=== PATIENT | male | born 1960 | race American Indian/Alaskan Native ===

== ENCOUNTER 2017-11-09 07:17 | Day surgery (SDC) | payer MEDICARE ==
[2017-11-09] MEDS ORDERED: NACL 0.9% 1000 ML 1,000 ML ONE ×2 (07:47→08:13)
[2017-11-09] MEDS ORDERED: WATER FOR IRRIG STERILE IR ONE (08:37)
[2017-11-09] MEDS ORDERED: WATER FOR IRRIG STERILE ONE (08:38)
--- NOTE | 2017-11-09 08:46 | Anesthesia Day of Surgery ---
Anesthesia Day of Surgery - Day of Surgery Patient Examined: Yes Patient H&P Reviewed: Yes Patient is NPO: Yes
--- NOTE | 2017-11-09 08:46 | Anesthesia Consultation ---
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
[2017-11-09] MEDS ORDERED: DIPRIVAN 10 MG/ML IV ONE ×2 (08:55→08:56)
[2017-11-09] MEDS ORDERED: NACL 0.9% 1000 ML 1,000 ML IV SCH (09:00)
--- NOTE | 2017-11-09 09:14 | Short Stay Summary ---
Short Stay Documentation Date of service: 11/09/17 Narrative H&P: 57 year old presents for colonoscopy for his initial colon screening examination. - History Principal diagnosis: average risk colon screening H&P: obtained from office Past Medical History: diabetes, hypertension, renal failure, stroke Past Surgical History: No surgical history Social history: smoking (former), other (occasional alcohol use) - Allergies and Medications Current Medications: Allergies No Known Allergies Allergy (Unverified 11/09/17 07:18) Home Medications Medication Instructions Recorded Confirmed Last Taken Type Aspirin BABY CHEW TAB 1 tab PO DAILY 11/09/17 11/09/17 11/07/15 History 81MG Sitagliptin Phosphate [Januvia] 25 tab PO 3XW 11/09/17 11/09/17 11/08/17 History 25 amLODIPine 5 tab PO 3XW 11/09/17 11/09/17 11/09/17 06:00 History 5MG Active Medications Sodium Chloride (Nacl 0.9% 1000 Ml) 1,000 mls @ 50 mls/hr IV DIRECT ERASMO - Physical exam General appearance: no acute distress, well-nourished HEENT: PERRLA, EOMI Lungs: Clear to auscultation Heart: Regular rate, Normal S1, Normal S2 Gastrointestinal: normal, obese Neurological: Normal speech - Hospital course Hospital course: Unsuccessful colonoscopy due to poor prep. - Disposition Condition at discharge: Good Disposition: DC-01 TO HOME OR SELFCARE - Discharge Diagnoses (1) Encounter for screening colonoscopy for [id number] patient Status: Acute Short Stay Discharge Plan Activity: other (no driving today) Diet: other (resume usual diet) Additional Instructions: Contact our office to schedule repeat colonoscopy using an enhanced prep. Follow up with: FAUSTINA KEY MD [Primary Care Provider] - 7 Days
[2017-11-09 10:11] VITALS: BP 137/71
--- NOTE | 2017-11-09 10:44 | Operative Report ---
Operative Report Operative Report: Date of procedure: 11/09/2017 Preprocedure diagnosis: Average risk colon screening Post procedure diagnosis: Unsatisfactory prep Procedure name(s): Intended colonoscopy, reduced to fiberoptic sigmoidoscopy Surgeon: Jose Mahoney MD Anesthesia: Monitored anesthesia care EBL: None Procedure: The indications, techniques, potential complications and alternatives , had been discussed in full detail prior to the date of the exam, and once again on the day of the exam. Questions were encouraged and answered, and consent was thereby obtained. The patient was placed in the left lateral decubitus position, and was medicated by anesthesia services. See the anesthesia records for details. The anal sphincter was digitally dilated. The digital exam was unremarkable. The tip of the [employer]inon video colonoscope was inserted to the anal sphincter and into the rectal vault. There was retained content which was for the most part liquid and it was elected to proceed with the examination so long as retained content couldn't be adequately cleared. In the descending colon the retained content was semisolid and could not be adequately cleared. The procedure was terminated at this point. The abbreviated procedure was well tolerated. He was then monitored in the recovery area of the GI lab to ensure stability prior to his release. CV outpatient record for details regarding instructions to patient, medications and plans for follow-up. Repeat colonoscopy using an enhanced prep and carefully following the instructions given to him by our office has been discussed in detail with the patient and his at the bedside in recovery. Final diagnosis: Unsatisfactory prep for average risk colon screening Colon screening information: No previous colonoscopy. Jose Mahoney M.D. Dictated 11/09/2017
--- NOTE | 2017-11-09 14:23 | Post Anesthesia Evaluation ---
- Post Anesthesia Evaluation Patient Participated: Yes Airway Patent: Yes Stable Respiratory Function: Yes Nausea/Vomiting: No Temp > 96.8F: Yes Pain Manageable: Yes Adequeate Hydration: Yes Anesthesia Complications: No
== END 2017-11-09 07:18 | disposition home or self-care (01) ==
LOC: GIO 07:17
PROVIDERS: ATTEND Internal Medicine Gastroenterology
DX: Z12.11 Encounter for screening for malignant neoplasm of colon (principal); I10 Essential (primary) hypertension; I69.954 Hemiplegia and hemiparesis following unspecified cerebrovascular disease affecting left non-dominant side; E11.9 Type 2 diabetes mellitus without complications; Z79.82 Long term (current) use of aspirin; Z79.84 Long term (current) use of oral hypoglycemic drugs
CPT/HCPCS: 82962; G0121; J2704; J7030

== ENCOUNTER 2017-12-07 07:15 | Day surgery (SDC) | payer MEDICARE ==
[~2017-12-07 07:15] MED LIST: NACL 0.9% 1000 ML 1,000 ML IV SCH
[2017-12-07] MEDS ORDERED: WATER FOR IRRIG STERILE IR ONE (07:25)
[2017-12-07] MEDS ORDERED: WATER FOR IRRIG STERILE ONE (07:25)
[2017-12-07] MEDS ORDERED: XYLOCAINE MPF 2% ONE (07:30)
[2017-12-07] MEDS ORDERED: DIPRIVAN 10 MG/ML IV ONE ×2 (09:03)
--- NOTE | 2017-12-07 09:11 | Anesthesia Consultation ---
Anesthesia Consult and Med Hx Date of service: 12/07/17 - Airway Anesthetic Teeth Evaluation: Poor, Edentulous ROM Head & Neck: Adequate Mental/Hyoid Distance: Adequate Mallampati Class: Class II Intubation Access Assessment: Probably Good - Pulmonary Exam CTA: Yes - Cardiac Exam Cardiac Exam: RRR - Pre-Operative Health Status ASA Pre-Surgery Classification: ASA3 Proposed Anesthetic Plan: MAC - Pulmonary Hx Smoking: Yes - Cardiovascular System Hx Hypertension: Yes - Central Nervous System CVA: Yes (left side weakness) - Endocrine Hx Renal Disease: Yes Hx End Stage Renal Disease: Yes Hx Non-Insulin Dependent Diabetes: Yes
--- NOTE | 2017-12-07 09:12 | Anesthesia Day of Surgery ---
Anesthesia Day of Surgery - Day of Surgery Patient Examined: Yes Patient H&P Reviewed: Yes Patient is NPO: Yes
--- NOTE | 2017-12-07 09:17 | Short Stay Summary ---
Short Stay Documentation Date of service: 12/07/17 Narrative H&P: 57 year old for colonoscopy for average risk colon screening. No prior colonoscopy. Unsuccessful attempt at colonoscopy 11/09/17 with poor prep. - History Principal diagnosis: average risk colon screening Past Medical History: diabetes, hypertension, renal failure, stroke - Allergies and Medications Current Medications: Allergies No Known Allergies Allergy (Unverified 11/09/17 07:18) Home Medications Medication Instructions Recorded Confirmed Last Taken Type Aspirin BABY CHEW TAB 1 tab PO DAILY 11/09/17 12/07/17 11/23/17 10:00 History RX: Sitagliptin Phosphate [Januvia] 25 tab PO 3XW 11/09/17 12/07/17 12/01/17 17: 00 History amLODIPine 5 tab PO 3XW 11/09/17 12/07/17 12/07/17 07:00 History Active Medications Sodium Chloride (Nacl 0.9% 1000 Ml) 1,000 mls @ 50 mls/hr IV DIRECT ERASMO Last Admin: 12/07/17 08:36 Dose: 50 mls/hr - Physical exam General appearance: no acute distress, well-nourished HEENT: PERRLA, EOMI Lungs: Clear to auscultation Heart: Regular rate, Normal S1, Normal S2 Gastrointestinal: normal Neurological: Normal speech - Hospital course Hospital course: Uneventful colonoscopy with polypectomy. - Disposition Condition at discharge: Good Disposition: DC-01 TO HOME OR SELFCARE - Discharge Diagnoses (1) Colon polyps Status: Acute (2) Diverticulosis Status: Acute Qualifiers: Diverticulosis site: diverticulosis of large intestine (3) Internal hemorrhoids Status: Acute (4) Encounter for screening colonoscopy for [id number] patient Status: Acute Short Stay Discharge Plan Activity: other (no driving today) Diet: other (resume usual) Special Instructions: other (No NSAIDs for 14 days.) Additional Instructions: 1. No NSAIDs for 14 days. 2. Call for path results in 2 weeks. 3. First-degree relatives (siblings, children) should be told that polyps run in the family and to begin their colon screening at age 40. Post Sedation D/C Instructions -When you return home you may resume your regular diet unless otherwise directed. -Go directly home from the hospital and rest quietly. You may resume normal activities tomorrow. -Do NOT drive, return to work, operate any machinery or make any important personal or business decisions today. -Do NOT drink any alcohol or take nerve or sleeping drugs. They add to the effects of the medicine still present in your body. Follow up with: FAUSTINA KEY MD [Primary Care Provider] - 7 Days
--- NOTE | 2017-12-07 10:30 | Operative Report ---
Operative Report Operative Report: Date: 12/07/2017 Preprocedure diagnosis: Average risk colon screening Postprocedure diagnosis: Colon polyps, diverticulosis, internal hemorrhoids Procedure: Colonoscopy with snare polypectomy 3 Medication: Monitored anesthesia care Complication: None Estimated blood loss: None Procedure: The indications, techniques, potential complications and alternative methods of diagnosis had been discussed with him in detail prior to the date of the exam, and were reviewed again with him on the day of the exam. His questions were encouraged and answered and he granted consent. He was placed in the left lateral decubitus position and medicated by anesthesia services. The anal sphincter was digitally dilated. The digital exam was unremarkable. The tip of a [employer] videocolonoscope was inserted through the anal sphincter and into the rectal vault. It was then advanced proximally under continuous visualization of the lumen to the cecum without difficulty. Along the way, blood was noted to coat mucosa of the transverse colon, and 3 sizable polyps were noted. The cecum itself was unremarkable. The appendiceal orifice was normal. There was a pedunculated 1 cm polyp on the ileocecal valve which was excised with a snare and cautery. No bleeding was precipitated. The lesion was retrieved by total withdrawal of the endoscope. The colonoscope was reinserted and advanced back to the cecum. The polypectomy site was noted to be satisfactory without bleeding. No additional pathology was seen in the cecum or ileocecal valve. From the cecum, the instrument was slowly withdrawn with careful circumferential examination of the colonic mucosa. Scattered diverticula were seen in the descending colon, hepatic flexure and transverse colon. A 2.5 cm pedunculated polyp with significant surrounding mucosal coating of blood distal to the polyp, including clots, was noted in the mid transverse colon. The lesion was excised with a snare and cautery and retrieved by total withdrawal of the endoscope. The endoscope was reinserted back to the polypectomy site which was satisfactory in appearance without evidence of bleeding. Withdrawal of the instrument was continued. A 1.5 cm pedunculated polyp was excised from the distal transverse colon with a snare and cautery. The lesion was retrieved by suctioning through the endoscope. The polypectomy site was satisfactory in appearance without bleeding. The instrument was then readvanced back to the cecum, and then slowly withdrawn with careful circumferential examination of the mucosa. There were no additional findings in the cecum, ileocecal valve, ascending colon, hepatic flexure or transverse colon. All polypectomy sites were reinspected and appearance was satisfactory. The splenic flexure, descending colon and sigmoid colon were clear other than a few scattered diverticula. There were no additional polyps. The rectum appeared normal from the forward view. Retroflexion in the rectum revealed internal hemorrhoids. The instrument was fully withdrawn. The procedure was very well tolerated. He was then monitored in the recovery area of the GI lab to ensure stability prior to his release. See the outpatient record for details regarding instructions to patient, medications and plans for follow-up. Endoscopic assessment: 1. 2.5 cm pedunculated polyp, mid transverse colon. Evidence of significant polyp bleeding prior to polypectomy. No post polypectomy bleeding. 2. 1.5 cm pedunculated polyp, distal transverse colon. 3. 1.0 cm pedunculated polyp, ileocecal valve. 4. Diverticulosis. 5. Internal hemorrhoids. Jose Mahoney M.D. Dictated 12/07/2017 at 10:22 AM
[2017-12-07 11:01] VITALS: BP 141/73
== END 2017-12-07 07:16 | disposition home or self-care (01) ==
LOC: GIO 07:15
PROVIDERS: ATTEND Internal Medicine Gastroenterology
DX: Z12.11 Encounter for screening for malignant neoplasm of colon (principal); D12.3 Benign neoplasm of transverse colon; D12.0 Benign neoplasm of cecum; K57.30 Diverticulosis of large intestine without perforation or abscess without bleeding; K64.8 Other hemorrhoids; I69.954 Hemiplegia and hemiparesis following unspecified cerebrovascular disease affecting left non-dominant side; I12.0 Hypertensive chronic kidney disease with stage 5 chronic kidney disease or end stage renal disease; E11.22 Type 2 diabetes mellitus with diabetic chronic kidney disease; N18.6 End stage renal disease; F17.200 Nicotine dependence, unspecified, uncomplicated; Z79.899 Other long term (current) drug therapy; Z86.73 Personal history of transient ischemic attack (TIA), and cerebral infarction without residual deficits; Z79.82 Long term (current) use of aspirin
CPT/HCPCS: 45385; 82962; 88305; J2704; J7030